=== PATIENT | female | born 1975 | race Two or more races ===

== ENCOUNTER 2016-12-09 13:06 | Emergency (ER) | payer MEDICAID ==
[~2016-12-09] VITALS: Ht 160 cm; Wt 54.4 kg
[2016-12-09] MEDS ORDERED: METOCLOPRAMIDE HCL 10 MG/2 ML VIAL ONE (13:51)
[2016-12-09] MEDS ORDERED: diphenhydrAMINE HCL 50 MG/ML VIAL ONE (13:51)
[2016-12-09] MEDS ORDERED: METOCLOPRAMIDE HCL 10 MG/2 ML VIAL IV ONE (14:00)
[2016-12-09] MEDS ORDERED: diphenhydrAMINE HCL 50 MG/ML VIAL IV ONE (14:00)
[2016-12-09 15:19] LABS: KETONES,URINE 40 (NEGATIVE); LEUKOCYTE ESTERASE ,URINE Negative (NEGATIVE)
[2016-12-09 15:35] LABS: ADD UA MICROSCOPIC YES
[2016-12-09] MEDS ORDERED: KETOROLAC TROMETHAMINE INJ 30 MG/ML VIAL IV ONE (16:00)
[2016-12-09 16:04] LABS: ADD URINE CULTURE NO; RBC,URINE 0-2 /HPF (0-2); WBC,URINE 0-2 /HPF (0-3)
[2016-12-09] MEDS ORDERED: KETOROLAC TROMETHAMINE INJ 30 MG/ML VIAL ONE (16:08)
[2016-12-09 16:18] VITALS: BP 150/85
== END 2016-12-09 16:20 | disposition home or self-care (01) ==
LOC: ER 13:10
DX: R51 Headache (principal); I10 Essential (primary) hypertension
CPT/HCPCS: 70450; 81001; 84703; 96372; 96374; 96375; 99285; A4606; J1200; J1885; J2765; Z7610; 81000-TC

== ENCOUNTER 2018-01-13 15:59 | Emergency (ER) | payer BC, MEDICAID, OTHER ==
[~2018-01-13] VITALS: Ht 160 cm; Wt 58.1 kg
[2018-01-13 16:39] LABS: APPEARANCE,URINE Clear (CLEAR); BILIRUBIN,URINE Negative (NEGATIVE); BLOOD, URINE Trace-intact Ery/uL (NEGATIVE); COLOR,URINE Yellow (YELLOW); KETONES,URINE Trace (NEGATIVE); LEUKOCYTE ESTERASE ,URINE Trace (NEGATIVE); NITRITE, URINE Negative (NEGATIVE); PROTEIN,URINE Negative (NEGATIVE); UGLUCOSE Negative (NEGATIVE); UROBILINOGEN,URINE 0.2 EU/dL (0.2)
[2018-01-13 16:43] LABS: BACTERIA,URINE Few /HPF (None Seen); SQUAMOUS EPITHELIAL CELL,UR Few /HPF (None Seen)
[2018-01-13 17:21] VITALS: BP 145/80
== END 2018-01-13 17:21 | disposition home or self-care (01) ==
LOC: ER 16:07
DX: N39.0 Urinary tract infection, site not specified (principal); F17.200 Nicotine dependence, unspecified, uncomplicated; I10 Essential (primary) hypertension
CPT/HCPCS: 81001; 84703; 99284; 99406; A4606; Z7610; 81000-TC

== ENCOUNTER 2021-07-28 21:45 | Emergency (ER) | payer MEDICAID, OTHER ==
[~2021-07-28] VITALS: Ht 167.6 cm; Wt 57.2 kg
--- NOTE | 2021-07-28 22:14 | NUR ---
PT BIBS WITH C/O CHEST PAIN X4 DAYS THAT RADIATES TO LEFT SHOULDER AND BACK. "FEELS LIKE SOMEONE IS SITTING ON MY CHEST". PT ALSO C/O HAVING HIGH BP X4 DAYS AGO AND TOOK A "OLD CLONIDINE PILL FROM BEFORE". PT STATES SHE IS ALSO HAVING LEFT BREAST DISCHARGE X 1 MONTH AND TOOK ANTIBIOTICS FOR 10 DAYS. +DIZZINESS +NAUSEA -SOB. ALERT AND ORIENTED X4. AMBULATORY WITH NON LABORED BREATHING.
[2021-07-28] MEDS ORDERED: ASPIRIN 325 MG TABLET ONE (22:48)
[2021-07-28] MEDS ORDERED: NITROGLYCERIN 0.4 MG/TAB BOTTLE ONE (22:48)
[2021-07-28] MEDS: ASPIRIN 325 MG TABLET PO ONE (22:51)
[2021-07-28] MEDS: NITROGLYCERIN 0.4 MG/TAB BOTTLE SL ONE (22:51)
[2021-07-28 22:52] LABS: BASOPHILS # (AUTO) 0.1 K/uL (0.0-0.2); BASOPHILS % (AUTO) 0.8 % (0.0-2.0); EOSINOPHILS % (AUTO) 4.9 % (0.0-6.0); HEMATOCRIT 33 % (33-45); HEMOGLOBIN 10.5 g/dL (11.5-14.8); LYMPHOCYTES # (AUTO) 2.7 K/uL (0.8-4.8); LYMPHOCYTES % (AUTO) 39.7 % (20.0-44.0); MEAN CORPUSCULAR HGB CONC 32 g/dl (31.0-36.0); MEAN CORPUSCULAR VOLUME 84 fL (82-100); MONOCYTES # (AUTO) 0.7 K/uL (0.1-1.30); MONOCYTES % (AUTO) 9.8 % (2.0-12.0); NEUTROPHILS # (AUTO) 3.1 K/uL (1.8-8.9); NEUTROPHILS % (AUTO) 44.8 % (43.0-81.0); PLATELET COUNT (AUTO) 222 K/uL (150-450); RED BLOOD CELL COUNT(AUTO) 3.86 MIL/uL (4.0-5.2); WHITE BLOOD COUNT (AUTO) 6.8 K/uL (4.3-11.0)
[2021-07-28 23:13] LABS: CALCIUM, SERUM 8.4 mg/dL (8.5-10.1); CARBON DIOXIDE 25 mmol/L (21-32); CHLORIDE 106 mmol/L (98-107); CREATININE 0.7 mg/dL (0.6-1.3); GLUCOSE 92 mg/dL (74-106); POTASSIUM 3.8 mmol/L (3.5-5.1); SODIUM SERUM 140 mmol/L (136-145); UREA NITROGEN, BLOOD 14 mg/dL (7-18)
[2021-07-29] MEDS ORDERED: KETOROLAC TROMETHAMINE 15 MG/ML VIAL ONE (00:40)
[2021-07-29] MEDS: KETOROLAC TROMETHAMINE INJ 30 MG/ML VIAL IV ONE (01:05)
--- NOTE | 2021-07-29 01:48 | NUR ---
Patient discharged to home in stable condition. Written and verbal after care instructions given. Patient verbalizes understanding of instruction.
[2021-07-29 01:49] VITALS: BP 135/77
== END 2021-07-29 01:49 | disposition home or self-care (01) ==
LOC: ER 23:01
DX: R07.89 Other chest pain (principal); I10 Essential (primary) hypertension; Z60.2 Problems related to living alone
CPT/HCPCS: 36415; 71045; 76642; 80048; 83880; 84484; 85025; 93005; 96374; 99285; J1885